=== PATIENT | male | born 1960 | race Caucasian/White ===

== ENCOUNTER 2019-02-10 04:52 | Emergency (ER) | payer OTHER ==
[~2019-02-10] VITALS: Ht 188 cm; Wt 97.5 kg
[2019-02-10] MEDS ORDERED: METHOCARBAMOL 500 MG TAB PO ONE (07:00)
[2019-02-10] MEDS ORDERED: KETOROLAC TROMETH 60MG/2ML VIAL IM ONE (07:00)
[2019-02-10 07:28] VITALS: BP 124/78
== END 2019-02-10 09:04 | disposition home or self-care (01) ==
LOC: ER 04:52
DX: M48.061 Spinal stenosis, lumbar region without neurogenic claudication (principal); M54.31 Sciatica, right side; I10 Essential (primary) hypertension; F17.210 Nicotine dependence, cigarettes, uncomplicated
CPT/HCPCS: 72131; 96372; 99284; J1885